=== PATIENT | female | born 1945 | race Caucasian/White ===

== ENCOUNTER 2024-08-10 09:22 | Outpatient (CLI) | payer MEDICARE, MEDICAID | END 2024-08-10 09:23 | disposition home or self-care (01) | LOC: CSHWCC 09:22 | PROVIDERS: ATTEND Nurse Practitioner Family | DX: L89.153 Pressure ulcer of sacral region, stage 3 (principal); G40.802 Other epilepsy, not intractable, without status epilepticus | CPT/HCPCS: 11042; G0463; 99213 ==

== ENCOUNTER 2024-08-17 08:26 | Outpatient (CLI) | payer MEDICARE, MEDICAID | END 2024-08-17 08:27 | disposition home or self-care (01) | LOC: CSHWCC 08:26 | PROVIDERS: ATTEND Nurse Practitioner Family | DX: L89.153 Pressure ulcer of sacral region, stage 3 (principal); G40.802 Other epilepsy, not intractable, without status epilepticus | CPT/HCPCS: 99212; G0463 ==

== ENCOUNTER 2024-08-31 15:34 | Outpatient (CLI) | payer MEDICARE, MEDICAID | END 2024-08-31 15:35 | disposition home or self-care (01) | LOC: CSHWCC 15:34 | PROVIDERS: ATTEND Nurse Practitioner Family | DX: L89.153 Pressure ulcer of sacral region, stage 3 (principal); G40.802 Other epilepsy, not intractable, without status epilepticus | CPT/HCPCS: 97597 ==

== ENCOUNTER 2024-09-26 09:59 | Outpatient (CLI) | payer MEDICARE, MEDICAID | END 2024-09-26 10:00 | disposition home or self-care (01) | LOC: CSHWCC 09:59 | PROVIDERS: ATTEND Nurse Practitioner Family | DX: L89.153 Pressure ulcer of sacral region, stage 3 (principal); G40.802 Other epilepsy, not intractable, without status epilepticus | CPT/HCPCS: 97597; 99212; G0463 ==